=== PATIENT | male | born 1965 | race Caucasian/White ===

== ENCOUNTER → 2022-08-09 | Day surgery (SDC) | payer OTHER ==
[~2022-08-09] MED LIST: B VITAMINS; GARCINIA CAMBO1 EACH; HYOSCYAMINE SULFATE 0.5 MG/ML INJ ONE; LACTATED RINGER'S 1,000 ML ONE; LIDOCAINE HCL 2% LOCAL INJ 5 ML SDV VIAL INJ ONE; MIDAZOLAM HCL 2 MG/2 ML VIAL ONE; PHENTERMINE HCL15 MG PO; PROPOFOL IV EMULSION 10 MG/ML 20 ML VIAL ONE; TOPIRAMATE25 MG PO
[2022-08-09 12:25] VITALS: TEMP 97.9
[2022-08-09 12:45] VITALS: BP 128/75; PULSE 68; RESP 18; O2SAT 100
== END | disposition home or self-care (01) ==
LOC: OR 09:14
PROVIDERS: ATTEND Internal Medicine Gastroenterology
DX: R19.4 Change in bowel habit (principal); D12.4 Benign neoplasm of descending colon; K57.30 Diverticulosis of large intestine without perforation or abscess without bleeding; K64.8 Other hemorrhoids; Z71.3 Dietary counseling and surveillance; Z71.89 Other specified counseling; E66.01 Morbid (severe) obesity due to excess calories; J30.2 Other seasonal allergic rhinitis; Z79.899 Other long term (current) drug therapy; Z68.42 Body mass index [BMI] 45.0-49.9, adult; Z86.16 Personal history of COVID-19
CPT/HCPCS: 45380; 45385; 93005; J1980; J2001; J2704; J7121; 45378; J2250

== ENCOUNTER → 2024-06-21 | Day surgery (SDC) | payer OTHER ==
[~2024-06-21] MED LIST changes: +ALBUTEROL/IPRATROPIUM 3 ML NEB ONE; +B-12 INJ; +DEXMEDETOMIDINE HCL 200 MCG/2 ML VIAL ONE; +GLUCAGON FOR INJ 1 MG VIAL ONE; -LACTATED RINGER'S 1,000 ML ONE; +LEVOTHYROXINE25 MCG; +PROPOFOL IV EMULSION 50 ML IV ONE
[2024-06-21] MEDS: LACTATED RINGER'S 1,000 ML ONE (13:04)
[2024-06-21 16:01] VITALS: TEMP 98.8
[2024-06-21 16:30] VITALS: BP 124/84; PULSE 76; RESP 16; O2SAT 96
== END | disposition home or self-care (01) ==
LOC: OR 12:33
PROVIDERS: ATTEND Internal Medicine Gastroenterology
DX: D12.6 Benign neoplasm of colon, unspecified (principal); K57.30 Diverticulosis of large intestine without perforation or abscess without bleeding; K64.8 Other hemorrhoids; K21.9 Gastro-esophageal reflux disease without esophagitis; E03.9 Hypothyroidism, unspecified; E66.01 Morbid (severe) obesity due to excess calories; R03.0 Elevated blood-pressure reading, without diagnosis of hypertension; Z71.89 Other specified counseling; M17.12 Unilateral primary osteoarthritis, left knee; Z01.810 Encounter for preprocedural cardiovascular examination; Z79.899 Other long term (current) drug therapy; Z68.42 Body mass index [BMI] 45.0-49.9, adult; Z71.3 Dietary counseling and surveillance; Z86.16 Personal history of COVID-19
CPT/HCPCS: 45385; 93005; J1610; J1980; J2003; J2250; J2704 ×2; J7121